=== PATIENT | male | born 1945 | race Caucasian/White ===

== ENCOUNTER → 2016-10-06 | Outpatient (CLI) | payer MEDICARE, BC ==
[~2016-10-06] MED LIST: FLOMAX0.4 MG PO; KEFLEX PO; LISINOPRIL PO; METAMUCIL0.52 G PO; NORVASC PO; VICODIN PO
[2016-10-06 12:47] LABS: BUN/CREATININE RATIO 13.84; CALCIUM SERUM 9.2 mg/dL (8.4-10.2); CREATININE SERUM 1.3 mg/dL (0.6-1.4)
[2016-10-08 10:57] LABS: MICROALB UR (PNL) 0.1 mg/dL (***)
== END | disposition home or self-care (01) ==
LOC: CLAB 11:08
PROVIDERS: Internal Medicine Cardiovascular Disease
DX: I25.10 Atherosclerotic heart disease of native coronary artery without angina pectoris (principal)
CPT/HCPCS: 36415; 80048; 80061; 82043; 82570; 84460

== ENCOUNTER → 2017-04-02 | Outpatient (CLI) | payer MEDICARE, BC ==
[2017-04-02 11:38] LABS: BUN/CREATININE RATIO 8.46; CALCIUM SERUM 9.2 mg/dL (8.4-10.2); CREATININE SERUM 1.3 mg/dL (0.6-1.4); GLOM FILT RATE Estimated 55.3 mL/min (>60); POTASSIUM 3.6 mmol/L (3.5-5.1)
[2017-04-05 06:54] LABS: MICROALB UR (PNL) 0.1 mg/dL (***)
== END | disposition home or self-care (01) ==
LOC: CLAB 09:25
PROVIDERS: Internal Medicine Cardiovascular Disease
DX: I25.10 Atherosclerotic heart disease of native coronary artery without angina pectoris (principal)
CPT/HCPCS: 36415; 80048; 80061; 82043; 82570; 84460